=== PATIENT | female | born 1975 | race African-American/Black ===

== ENCOUNTER 2017-02-14 12:52 | Emergency (ER) | payer OTHER ==
--- NOTE | ~2017-02-14 | CT4 ---
[facility] A Service of [facility] RADIOLOGY TEXT RESULTS PATIENT: EVELYN GORDON LOCATION: SED : 73 UNIT #: [id number] AGE: [address]: Samaria Riley MD SEX: F ORDER DR: [id number] [id number] E MR#: [id number] Acc #: [id number] NAME: EVELYN GORDON. : 1975 SEX: F STUDY DATE/TIME: 02/14/2017 14:01 UNIT: SED ROOM: STUDY DESCRIPTION: CT Abd and Pelv Wo Cont Attending Physician: Samaria Riley M.D. Ordering Physician: Samaria Riley M.D. Primary Care Physician: Clarissa Martinez A.P.R.N. MEDICAL IMAGING REPORT This report is preliminary unless electronic signature is present. EXAM CT abdomen and pelvis, 02/14/2017 HISTORY UTI and pain since this morning. Diabetes. Prior history of hysterectomy. COMPARISON 11/01/2016. TECHNIQUE CT abdomen and pelvis performed without administration of intravenous contrast. This CT exam was performed with one or more of the following radiation dose reduction techniques: automatic exposure control, adjustment of mA and/or kV according to patient size, and iterative reconstruction. FINDINGS Dependent atelectasis at lung bases. Inferior heart and pericardium unremarkable. Liver, gallbladder, spleen, pancreas, adrenal glands unremarkable. No renal calculi or obstruction. No perinephric fluid collections or inflammatory change. Bilateral ureters are unremarkable. CT PELVIS: No inguinal adenopathy. Urinary bladder unremarkable. Prior hysterectomy. Bilateral ovaries unremarkable in appearance for a patient this age. There is no fluid collection in the pelvis. No pelvic or retroperitoneal adenopathy. Distal esophagus, stomach, small bowel unremarkable. There are surgical clips at level of the appendix and the patient appears to be status post appendectomy. Correlate with history. No right lower quadrant or pericecal inflammatory change is seen. The colon is unremarkable. Review of the urinary bladder suggests that there might be mild bladder wall prominence diffusely relative to volume. This [facility] A Service of [facility] RADIOLOGY TEXT RESULTS PATIENT: EVELYN GORDON LOCATION: [facility] [place] : [birth year] UNIT #: [id number] AGE: [address]: Samaria Riley MD SEX: F ORDER DR: could be a reflection of the patient's stated underlying urinary tract infection. Correlate with urinalysis. No focal bladder wall abnormalities seen. The unopacified vascular structures normal in appearance. Bony structures show no abnormality. IMPRESSION 1. There is evidence of renal calculi or obstruction. No perinephric or periureteral inflammatory change. 2. No focal bladder abnormalities seen but the urinary bladder wall appears mildly and diffusely prominent relative to its volume. This may be a reflection of the patient's stated urinary tract infection. Please correlate with urinalysis. 3. Postoperative changes of hysterectomy. Patient appears to retain bilateral unremarkable-appearing ovaries. 4. Patient appears to be status post appendectomy. 5. Gallbladder, pancreas unremarkable. 6. Small bowel and colon unremarkable. Dictated by... Brooks Campos M.D. THIS IS AN ELECTRONICALLY VERIFIED REPORT Brooks Campos M.D. at 02/15/2017 6:32 PM GIRMA/estefanía TD: 02/14/2017 20:43 JOB #: [id number] MEDICAL IMAGING REPORT Page 1 of 1
[~2017-02-14 12:52] MED LIST: ACETAMINOPHEN PO; ACETAMINOPHEN325 MG PO; ACETAMINOPHEN500 M7 PO; ALBUTEROL17 GM INH; ALBUTEROL2.5 MG/0.5 IH; ALBUTEROL20 ml INH; ALPRAZOLAM PO; ATROVENT NEB; AVANDIA PO; BACTRIM DS TABL1 TA1; BACTRIM DS TABL1 TA1 PO; BENTYL10 MG PO; BENTYL20 MG PO; BISACODYL EC5 M1 PO; CARAFATE PO; CARAFATE1 G PO; CATAPRES-TTS-20.2 MG PO; CATAPRES0.1 MG PO; CHEWABLE ASPIRI81 MG PO; CIPRO PO; CIPRO250 MG PO; CLONIDINE HCL0.1 MG PO; CLONIDINE PO; COLACE PO; COMBIVENT MININEB INH; DARVOCET-N 1001 TAB PO; DIABETIC S100 MG/5 M PO; DICYCLOMINE HCL20 MG PO; DYAZIDE 371 CAP 37.5 PO; EASY TOUCH MC; FAMOTIDINE PO; FLAGYL PO; FLEXERIL PO; FLEXERIL10 MG PO; FLOMAX0.4 M1 PO; FLONASE 0.05% N16 G1; GLYNASE PO; HUMALOG100 U/M2 SUBQ; HUMALOG100 U/ML SUBQ; HUMULIN 70100 UNIT/1 SUBQ; HUMULIN R100 U/ML SUBQ; HYDROCODON-ACE1 EAC4 PO; HYDROCODON-ACE1 EAC5 PO; IMITREX25 MG PO; IRON PILL PO; IRON PO; KEFLEX500 M1 PO; KEFLEX500 MG PO; KLONOPIN0.25 MG/TA PO; KLONOPIN0.5 MG PO; KLONOPIN1 M1 PO; LEVAQUIN PO; LEVAQUIN750 MG PO; LEVEMIR SUBQ; LIPITOR; LIPITOR PO; LIPITOR80 MG PO; LISINOPRIL PO; LISINOPRIL10 MG PO; LISINOPRIL5 MG PO; LOPRESSOR PO; LORTAB; LORTAB 10-3251 EACH PO; LORTAB 10-5001 EACH PO; LORTAB 10/500 T1 TAB PO; LORTAB 5-325 M1 EACH PO; LORTAB 7.5-5001 TAB PO; MACROBID100 MG PO; MEDROL PO; MEDROL4 MG/DOSE- PO; METFORMIN HCL1000 M1 PO; METFORMIN HCL500 M1 PO; METFORMIN PO; METOPROLOL SUCC25 MG PO; MILK OF MAGNESIA PO; MINIPRESS PO; MINIPRESS5 MG PO; MORGIDOX100 MG PO; NEURONTIN; NEURONTIN PO; NEURONTIN600 MG PO; NEURONTIN800 MG PO; NILSTAT1 ML; NORCO 10-325 TA1 TAB PO; NORCO1 TAB 10/3 PO; NOVOLOG100 U/ML SUBQ; NUCYNTA50 MG PO; OXYCODON HCL-AP1 TA2 PO; OXYCODONE HCL5 M1 PO; PERCOCET10 PO; PERCOCET5/325 PO; PERCOCET7.5 PO; PHENERGAN PO; PHENERGAN25 M1 DOB; PHENERGAN25 M1 PO; PHENERGAN25 MG PO; PHENOL-SODIUM180 M1 MT; PRAZOSIN HCL5 MG PO; PREDNISONE PO; PREDNISONE10 MG PO; PRILOSEC PO; PROTONIX PO; PROVERA PO; PYRIDIUM PO; PYRIDIUM100 MG PO; REGLAN PO; REMERON PO; REMERON30 MG PO; RESTORIL15 MG PO; ROBAXIN 750750 M1 DOB; ROBAXIN PO; SENNA S TABLET1 TAB PO; SEROQUEL50 MG PO; SILVADENE TOP; SKELAXIN PO; SYMBICORT INH; TEMAZEPAM PO; TETRACYCLINE PO; TOPROL XL50 MG PO; TYLENOL #3 PO; TYLOX 5-500 CA1 EACH PO; TYLOX 5/500 CAP1 CAP PO; TYLOX1 CAP 5/50 PO; ULTRAM PO; URISPAS100 M1 PO; VICODIN 5/1 TAB 5/50 PO; VICODIN 5/500 T1 TAB PO; VICODIN PO; WALGREENS PHARMACY; ZANAFLEX2 MG; ZANAFLEX4 M1 PO; ZESTRIL10 M2 PO; ZOFRAN ODT4 MG PO; ZOFRAN PO; [UNRECOGNIZED DRUG - OTHER] MC; [UNRECOGNIZED DRUG - OTHER] PO
[2017-02-14 13:33] LABS: URINE SOURCE CLEAN CATCH
[2017-02-14 13:37] LABS: BASOPHIL# 0.1 X10e3 (0-0.3); BASOPHIL% 1.2 % (0-2.5); EOSINOPHIL# 0.1 X10e3 (0-0.7); EOSINOPHIL% 2.8 % (0.0-7.0); HEMATOCRIT 37.3 % (35.0-45.0); HEMOGLOBIN 12.4 gm/dL (12.0-16.0); LYMPHOCYTE# 2.9 X10e3 (1.0-3.5); LYMPHOCYTE% 55.6 % (17.0-45.0); MEAN CELL VOLUME 81.3 FL (83-96); MEAN CORPUSCULAR HGB CONC 33.3 g/dL (30-36); MONOCYTE# 0.3 X10e3 (0-1.0); MONOCYTE% 6.1 % (3.0-12.0); NEUTROPHIL# 1.8 X10e3 (1.5-7.1); NEUTROPHIL% 34.3 % (40-75); PLATELET COUNT 257 X10e3 (140-420); RED BLOOD COUNT 4.59 X10e (3.90-5.30); RED CELL DISTRIBUTION WIDTH 14.3 % (11.0-15.5); WHITE BLOOD COUNT 5.2 X10e3 (4.0-10.5)
[2017-02-14 13:38] LABS: URINE APPEARANCE CLEAR; URINE BILIRUBIN NEG (NEG); URINE BLOOD NEG (NEG); URINE COLOR YELLOW; URINE GLUCOSE NEG (NORM); URINE KETONE NEG (NEG); URINE LEUKOCYTE ESTERASE NEG (NEG); URINE NITRATE POS (NEG); URINE PH 6.5 (5-8); URINE PROTEIN NEG (NEG); URINE UROBILINOGEN 0.2 MG/DL (NORM)
[2017-02-14 13:39] LABS: DIFF IND NO
[2017-02-14 13:40] LABS: MICRO INDICATED? YES
[2017-02-14 13:44] LABS: CULTURE INDICATED? YES; URINE BACTERIA 1+ (NEG); URINE RBC NEG /[HPF] (0-2); URINE SQUAMOUS EPITHELIAL CELL FEW /[HPF]; URINE WBC 0-2 /[HPF] (0-5)
[2017-02-14 13:58] LABS: ALBUMIN SERUM 4.2 g/dL (3.5-5.0); ALKALINE PHOSPHATASE 108 U/L (32-92); ALT (SGPT) 29 U/L (10-40); AST (SGOT) 24 U/L (10-42); BILIRUBIN,TOTAL 0.2 mg/dL (0.2-2.0); PROTEIN TOTAL SERUM 7.6 g/dL (6.0-8.3)
[2017-02-14 14:08] LABS: BILIRUBIN, DIRECT <0.1 mg/dL (0.0-0.2); BILIRUBIN,INDIRECT 0.1 mg/dL (0.0-0.9)
[2017-02-14 15:30] LABS: CALCIUM SERUM 9.3 mg/dL (8.4-10.2); CREATININE SERUM 0.9 mg/dL (0.6-1.4); GLOM FILT RATE Estimated 90.8 mL/min (>60)
[2017-02-14 15:31] LABS: POTASSIUM 3.5 mmol/L (3.5-5.1)
[2017-06-07] MEDS ORDERED: AMBIEN (12:48)
== END 2017-02-14 16:23 | disposition home or self-care (01) ==
LOC: SED 12:52
PROVIDERS: Student in an Organized Health Care Education/Training Program
DX: N30.00 Acute cystitis without hematuria (principal); R11.2 Nausea with vomiting, unspecified; E11.9 Type 2 diabetes mellitus without complications; Z91.012 Allergy to eggs; Z88.8 Allergy status to other drugs, medicaments and biological substances; Z79.4 Long term (current) use of insulin; Z79.899 Other long term (current) drug therapy
CPT/HCPCS: 36415; 74176; 80048; 80076; 81003; 85025; 87086; 87088; 87186; 96374; 96375; 99284; J0696; J2405